=== PATIENT | female | born 1940 | race Caucasian/White ===

== ENCOUNTER → 2016-11-20 | Day surgery (SDC) | payer MEDICARE, BC ==
[~2016-11-20] MED LIST: ALDACTONE25 MG PO; COREG6.25 MG PO; DYAZIDE 37.5/251 CAP PO; ESCITALOPRAM OX10 MG PO; FLAGYL PO; KEFLEX PO; LEVAQUIN PO; LEVOXYL0.137 MG PO; LIPITOR40 MG PO; LISINOPRIL10 MG PO; LODINE PO; LORATADINE PO; PERCOCET PO; PHENERGAN PO; PROTONIX PO; REGLAN PO; SINGULAIR PO; SYNTHROID PO; TRIAMTERENE-HC1 EAC1 PO; VITAL-D RX TABL1 TAB PO; ZOCOR PO; ZOLOFT PO; [UNRECOGNIZED DRUG - OTHER] IM; [UNRECOGNIZED DRUG - OTHER] PO
--- NOTE | ~2016-11-20 | OR ---
Unit #: [id number] #: [id number] Patient: RACHEL MICHAUD [id number] [address] [place], [place] [address] [id number] O MR#: [id number] NAME: RACHEL MICHAUD. ROOM: Date of Procedure: 11/20/2016 Admission Date: 11/20/2016 Surgeon: Mac Mehta M.D. : 1940 Attending Physician: Mac Mehta M.D. Primary Care Physician: Fausto Simon M.D. OPERATIVE REPORT JOB NOTE: CC: [facility] PREOPERATIVE DIAGNOSES 1. Herniated nucleus pulposus. 2. Spondylolisthesis. 3. Spinal stenosis. 4. Back pain. 5. Radiculopathy. POSTOPERATIVE DIAGNOSES 1. Herniated nucleus pulposus. 2. Spondylolisthesis. 3. Spinal stenosis. 4. Back pain. 5. Radiculopathy. PROCEDURE PERFORMED Lumbar epidural steroid injection with intravenous sedation and fluoroscopic guidance for needle localization. INDICATIONS FOR PROCEDURE The patient is a 76-year-old female with long history of back pain that is worsened significant over the last few years with pain radiating to the right hip and leg most significant at this point. Workup demonstrated a right extrusion with moderately severe spinal and neuroforaminal stenosis at the L5-S1 level. At the S1-S2, there was a left-sided disk herniation. There was a degenerative facet disease and disk disease from L3 down to the S1. Based on history, pathology, symptomatology, and modalities available, plan is for trial of epidural steroid injection today. DESCRIPTION OF PROCEDURE The patient was placed in a seated position. Standard monitors were applied. 2 mg of Versed were given for sedation and anxiolysis, which were adequate. Vital signs remained stable. Sterile prep and drape then of the lumbar area was performed. The skin then at the L5 level was localized with 1% lidocaine. An 18-gauge [employer]ince[employer] needle was then advanced via loss of resistance technique and fluoroscopic guidance in toward the epidural space. After confirming proper positioning with fluoroscopy and radiographic contrast, 80 mg of Depo-Medrol and 4 mL of 0.125% bupivacaine were deposited. The patient tolerated the procedure otherwise well and was discharged to recovery room in stable condition. Unit #: [id number] #: [id number] Patient: RACHEL MICHAUD Dictated by... Genaro Duke/lorrie TD: 11/21/2016 00:09 JOB #: [id number] OPERATIVE REPORT X Mac Mehta MD X PROCEDURE OPERATIVE NOTE
== END | disposition home or self-care (01) ==
LOC: CCSC 10:47
DX: M51.17 Intervertebral disc disorders with radiculopathy, lumbosacral region (principal); M43.16 Spondylolisthesis, lumbar region; M48.07 Spinal stenosis, lumbosacral region; E66.9 Obesity, unspecified
CPT/HCPCS: J1040; J2250

== ENCOUNTER → 2016-12-04 | Day surgery (SDC) | payer MEDICARE, BC ==
--- NOTE | ~2016-12-04 | OR ---
Unit #: [id number] #: [id number] Patient: RACHEL MICHAUD [id number] [address] [place], [place] [address] [id number] O MR#: [id number] NAME: RACHEL MICHAUD. ROOM: Date of Procedure: 11/21/2016 Admission Date: 12/04/2016 Surgeon: Mac Mehta M.D. : 1940 Attending Physician: Mac Mehta M.D. Primary Care Physician: Fausto Simon M.D. OPERATIVE REPORT PREOPERATIVE DIAGNOSES 1. Back pain. 2. Radiculopathy. 3. Lumbar disk herniation. 4. Spondylolisthesis. 5. Spinal stenosis. POSTOPERATIVE DIAGNOSES 1. Back pain. 2. Radiculopathy. 3. Lumbar disk herniation. 4. Spondylolisthesis. 5. Spinal stenosis. PROCEDURE PERFORMED Lumbar epidural steroid injection with intravenous sedation and fluoroscopic guidance for needle localization. INDICATIONS FOR PROCEDURE The patient is a 76-year-old female with worsening back and right greater than left hip pain. She has multilevel multifactorial degenerative disk and facet disease. She has disk extrusion to the right at L5-S1, her left paramedian herniation at S1-S2. Initial epidural steroid injection resulted in fairly good initial improvement of her symptom complex. She now had a return, but maintained 20% to 30% of improvement. Based on her good partial improvement of pathology and symptomatology, we are going to proceed with a repeat epidural steroid injection today. DESCRIPTION OF PROCEDURE The patient was placed in a seated position. Standard monitors were applied. Sterile prep and drape of the lumbar area was performed. The skin then at the L5 level was localized with 1% lidocaine. An 18-gauge [employer] needle was then advanced via loss of resistance technique and fluoroscopic guidance in toward the epidural space. After confirming proper positioning with fluoroscopy and radiographic contrast, 80 mg Depo-Medrol and 4 mL of 0.125% bupivacaine were deposited. The patient tolerated the procedure otherwise well and was discharged to the recovery room in stable condition. Dictated by... Mac Mehta M.D. Unit #: [id number] #: [id number] Patient: RACHEL MICHAUD LHP/modl TD: 12/05/2016 01:16 JOB #: [id number] OPERATIVE REPORT X Mac Mehta MD X PROCEDURE OPERATIVE NOTE
== END | disposition home or self-care (01) ==
LOC: CCSC 10:23
DX: M51.17 Intervertebral disc disorders with radiculopathy, lumbosacral region (principal); M43.17 Spondylolisthesis, lumbosacral region; M48.07 Spinal stenosis, lumbosacral region
CPT/HCPCS: J1040; J2250

== ENCOUNTER → 2016-12-18 | Day surgery (SDC) | payer MEDICARE, BC ==
--- NOTE | ~2016-12-18 | OR ---
Unit #: [id number] #: [id number] Patient: RACHEL MICHAUD [id number] [address] [place], [place] [address] [id number] O MR#: [id number] NAME: RACHEL MICHAUD. ROOM: Date of Procedure: 12/18/2016 Admission Date: 12/18/2016 Surgeon: Mac Mehta M.D. : 1940 Attending Physician: Mac Mehta M.D. Primary Care Physician: Fausto Simon M.D. OPERATIVE REPORT PREOPERATIVE DIAGNOSES 1. Back pain. 2. Radiculopathy. 3. Degenerative lumbar disk disease. 4. Lumbar disk herniation. 5. Spinal stenosis. POSTOPERATIVE DIAGNOSES 1. Back pain. 2. Radiculopathy. 3. Degenerative lumbar disk disease. 4. Lumbar disk herniation. 5. Spinal stenosis. PROCEDURE PERFORMED Lumbar epidural steroid injection with intravenous sedation and fluoroscopic guidance for needle localization. INDICATIONS FOR PROCEDURE The patient is a 76-year-old female with back and right greater than left hip and lower extremity pain. Workup demonstrated multilevel multifactorial degenerative disk and spine issues. At L5-S1, there is a right-sided disk extrusion causing severe spinal stenosis, moderately severe neural foraminal stenosis. The patient had a rudimentary S1-S2. This was a right paramedian herniation. Initial epidural steroid injection resulted in significant improvement in all components of the pain. She can have return of the pain toward the end of the second week. She had repeat injections done at the level of the L5, this did not do as well as she has done with initial injections. The plan is to proceed with a repeat injection at the L5 level. If this is not sufficient, hence the significant facet disease, may be a part of her issue and we may look in for a trial of facet injections. L4-L5 has greater pathologic than L5-S1 level. DESCRIPTION OF PROCEDURE The patient was placed in the seated position. Standard monitors were applied. 2 mg of Versed were given for sedation and anxiolysis, which were adequate. Vital signs remained stable. Sterile prep and drape then of the lumbar area was performed. The skin then at the L5 level was localized with 1% lidocaine. An 18-gauge [employer] needle was then advanced via loss of resistance technique and fluoroscopic guidance in toward the epidural space. After confirming proper positioning with fluoroscopy and Unit #: [id number] #: [id number] Patient: RACHEL MICHAUD radiographic contrast, 80 mg of Depo-Medrol and 4 mL of 0.125% bupivacaine were deposited. The patient tolerated the procedure otherwise well and was discharged to recovery room in stable condition. Dictated by... Genaro Duke/lorrie TD: 12/19/2016 03:33 JOB #: [id number] OPERATIVE REPORT Page 1 of 1 X Mac Mehta MD X PROCEDURE OPERATIVE NOTE
== END | disposition home or self-care (01) ==
LOC: CCSC 10:27
DX: M51.16 Intervertebral disc disorders with radiculopathy, lumbar region (principal); M48.06 Spinal stenosis, lumbar region
CPT/HCPCS: J1040; J2250

== ENCOUNTER 2017-03-30 21:21 | Emergency (ER) | payer MEDICARE, BC ==
--- NOTE | ~2017-03-30 | EKG ---
PATIENT: RACHEL MICHAUD UNIT #: [id number] Ventricular Rate: 71 BPM Atrial Rate: 71 BPM P-R Interval: 186 ms QRS Duration: 88 ms Q-T Interval: 412 ms QTC Calculation(Bezet): 447 ms P [place]: 53 degrees Calculated R [place]: 29 degrees Calculated T [place]: 81 degrees Diagnosis Line: Normal sinus rhythm Diagnosis Line: Low voltage QRS Diagnosis Line: Borderline ECG Diagnosis Line: No previous ECGs available Diagnosis Line: Confirmed by APURVA PATIÑO MD ([id number]) on Diagnosis Line: 03/31/2017 10:08:39 AM INTERPRETING MD: NISHANT
--- NOTE | ~2017-03-30 | CT4 ---
[facility] A Service [facility] RADIOLOGY TEXT RESULTS PATIENT: RACHEL MICHAUD LOCATION: [facility] : 38 UNIT #: [id number] AGE: [address]: Wilmer Felipe MD SEX: F ORDER DR: [id number] [facility] [address] [place], [place] [address] [id number] MR#: [id number] Acc #: [id number] NAME: RACHEL MICHAUD. : 1940 SEX: F STUDY DATE/TIME: 03/31/2017 1:04 UNIT: [facility] ROOM: STUDY DESCRIPTION: CT Abd and Pelv Wo Cont Attending Physician: Wilmer Felipe M.D. Ordering Physician: Wilmer Felipe M.D. Primary Care Physician: Fasuto Simon M.D. MEDICAL IMAGING REPORT This report is preliminary unless electronic signature is present EXAM CT abdomen and pelvis without contrast. INDICATION Right flank pain, nausea and vomiting. Pain with urination for a week. COMPARISON 10/20/2012 TECHNIQUE Axial 3 mm images were obtained through the abdomen and pelvis without IV or oral contrast. This CT exam was performed with one or more of the following radiation dose reduction techniques: automatic exposure control, adjustment of mA and/or kV according to patient size, and iterative reconstruction. FINDINGS Lung bases are clear. The gallbladder has been removed. The liver, spleen, pancreas, adrenal glands and left kidney are normal. The right kidney has a posterior inferior exophytic cyst measuring 2.2 cm in diameter. This has developed since 2012. It measures 1 Hounsfield unit. The aorta is normal in size and there is no adenopathy. There are postop changes in the lower abdominal wall. There are postop changes involving the distal ileum. The bowel otherwise normal. The uterus has been removed. The bladder is normal. There are no adnexal masses. The bones show degenerative change in the lumbar spine. IMPRESSION 1. There are no acute abnormalities. 2. Prior cholecystectomy and hysterectomy. 3. Degenerative changes lumbar spine. [facility] A Service of [facility] RADIOLOGY TEXT RESULTS PATIENT: RACHEL MICHAUD [facility] #: [id number] : 38 UNIT #: [id number] AGE: [address]: Wilmer Felipe MD SEX: F ORDER DR: Dictated by... Feliciano Saleh M.D. THIS IS AN ELECTRONICALLY VERIFIED REPORT Feliciano Saleh M.D. at 04/01/2017 5:00 AM JAVIER/digna TD: 04/01/2017 02:50 JOB #: [id number] MEDICAL IMAGING REPORT Page 1 of 1 COPY
[2017-03-31 00:30] LABS: BASOPHIL# 0.1 X10e3 (0-0.3); BASOPHIL% 0.6 % (0-2.5); EOSINOPHIL# 0.2 X10e3 (0-0.7); EOSINOPHIL% 1.8 % (0.0-7.0); HEMATOCRIT 39.7 % (35.0-45.0); LYMPHOCYTE# 1.2 X10e3 (1.0-3.5); LYMPHOCYTE% 12.6 % (17.0-45.0); MEAN CELL VOLUME 91.5 FL (83-96); MEAN CORPUSCULAR HEMOGLOBIN 29.9 PG (28-34); MEAN CORPUSCULAR HGB CONC 32.6 g/dL (30-36); MEAN PLATELET VOLUME 8.3 FL (6.5-11.5); MONOCYTE# 0.6 X10e3 (0-1.0); NEUTROPHIL# 7.4 X10e3 (1.5-7.1); PLATELET COUNT 161 X10e3 (140-420); RED BLOOD COUNT 4.34 X10e (3.90-5.30); RED CELL DISTRIBUTION WIDTH 14.2 % (11.0-15.5); WHITE BLOOD COUNT 9.4 X10e3 (4.0-10.5)
[2017-03-31 00:31] LABS: DIFF IND NO
[2017-03-31 00:40] LABS: BUN/CREATININE RATIO 20.76; CALCIUM SERUM 9.2 mg/dL (8.4-10.2); CREATININE SERUM 1.3 mg/dL (0.6-1.4); GLOM FILT RATE Estimated 39.5 mL/min (>60); POTASSIUM 4.1 mmol/L (3.5-5.1)
[2017-03-31 01:01] LABS: URINE SOURCE CLEAN CATCH
[2017-03-31 01:06] LABS: URINE APPEARANCE CLEAR; URINE BILIRUBIN NEG (NEG); URINE BLOOD NEG (NEG); URINE COLOR YELLOW; URINE GLUCOSE NEG (NEG); URINE KETONE NEG (NEG); URINE LEUKOCYTE ESTERASE NEG (NEG); URINE NITRATE NEG (NEG); URINE PROTEIN NEG (NEG); URINE SPECIFIC GRAVITY 1.023 (1.003-1.035); URINE UROBILINOGEN 0.2 MG/DL (NEG)
[2017-03-31 01:12] LABS: CULTURE INDICATED? NO
== END 2017-03-31 02:18 | disposition home or self-care (01) ==
LOC: CED 21:21
DX: S39.012A Strain of muscle, fascia and tendon of lower back, initial encounter (principal); R10.9 Unspecified abdominal pain; X50.9XXA Other and unspecified overexertion or strenuous movements or postures, initial encounter
CPT/HCPCS: 74176; 80048; 81003; 85025; 93005; 96372; 99284; J1885; J2405